=== PATIENT | male | born 1980 | race Caucasian/White ===

== ENCOUNTER → 2020-08-31 | Outpatient (CLI) | payer BC ==
[~2020-08-31] MED LIST: ALBU8.5H4 IH; BUDE6HFA IH; WRF5T PO
--- NOTE | 2020-08-31 16:03 | Diagnostic Imaging Report ---
PROCEDURE: US Venous Lower Ext Zander. TECHNIQUE: Multiple real-time grayscale images were obtained over the lower extremities in various projections, bilaterally. Additional duplex Doppler and color Doppler images were also obtained. 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 On this study, there is still a small amount of nonocclusive thrombus present within the common femoral and superficial femoral veins. In the interval since the prior exam, a prominent collateral vessel has developed adjacent to the distal common femoral vein. This vessel extends caudally to join the distal superficial femoral vein. This vessel is patent. The remainder of the deep venous system shows no evidence for deep venous stenosis. Superficial thrombophlebitis of the medial lower thigh and lower calf was noted. There also appear to be small areas of thrombus in the greater saphenous vein in the mid thigh. IMPRESSION: 1. The nonocclusive thrombosis of the common femoral vein seen previously is again evident. There is no evidence for an acute deep venous thrombosis. 2. There is now a prominent collateral vessel extending caudally along the lateral aspect of the distal common femoral vein to join the distal superficial femoral vein. Dictated by: Dictated on workstation # [id number]
== END ==
LOC: RAD 14:00
PROVIDERS: ATTEND Family Medicine
DX: I82.413 Acute embolism and thrombosis of femoral vein, bilateral (principal)
CPT/HCPCS: 93970